=== PATIENT | female | born 1935 | race Caucasian/White ===

== ENCOUNTER → 2016-12-08 | Outpatient (CLI) | payer MEDICARE, OTHER ==
[~2016-12-08] MED LIST: ALEN70TA7 PO; ASPI-730 PO; BENZ100C97 PO; CALC600T12; FAMO20TA32 PO; FAMO20TA79 PO; LOVA20TA71 PO; METO100T97 PO; OMEP20TA2 PO; ROPI0.5T4 PO; SUCR1TAB20 PO; VITAMIN A; VITAMIN C; VITAMIN E
== END ==
LOC: LABN 09:32
PROVIDERS: ATTEND Family Medicine
DX: R19.7 Diarrhea, unspecified (principal)
CPT/HCPCS: 87507